=== PATIENT | female | born 1950 | race Caucasian/White ===

== ENCOUNTER 2021-02-07 08:02 | Outpatient (CLI) | payer MEDICARE | END 2021-02-07 08:03 | disposition home or self-care (01) | LOC: BICULT 08:02 | PROVIDERS: ATTEND Internal Medicine Gastroenterology | DX: R94.5 Abnormal results of liver function studies (principal); K76.6 Portal hypertension; R16.2 Hepatomegaly with splenomegaly, not elsewhere classified | CPT/HCPCS: 76705 ==

== ENCOUNTER 2021-04-08 11:03 | Outpatient (CLI) | payer MEDICARE | END 2021-04-08 11:04 | disposition home or self-care (01) | LOC: DTY/OP 11:03 | PROVIDERS: ATTEND Family Medicine | DX: E11.65 Type 2 diabetes mellitus with hyperglycemia (principal); N28.9 Disorder of kidney and ureter, unspecified | CPT/HCPCS: 97802 ==

== ENCOUNTER 2022-03-23 07:56 | Outpatient (CLI) | payer MEDICARE ==
[2022-03-23] MEDS ORDERED: Iopamidol-370 76% 500 ML 1 ML ONE (12:11)
== END 2022-03-23 07:57 | disposition home or self-care (01) ==
LOC: BICCT 07:56
PROVIDERS: ATTEND Physician Assistant Medical
DX: K74.60 Unspecified cirrhosis of liver (principal); R19.7 Diarrhea, unspecified; R18.8 Other ascites; R16.1 Splenomegaly, not elsewhere classified
CPT/HCPCS: 74177; 82565; Q9967

== ENCOUNTER 2023-02-17 08:22 | Outpatient (CLI) | payer MEDICARE | END 2023-02-17 08:23 | disposition home or self-care (01) | LOC: ULT 08:22 | PROVIDERS: ATTEND Physician Assistant Medical | DX: K74.60 Unspecified cirrhosis of liver (principal); R19.7 Diarrhea, unspecified; K76.6 Portal hypertension; R18.8 Other ascites | CPT/HCPCS: 36415; 76705; 80053; 82105; 85025; 85610 ==

== ENCOUNTER → 2023-06-28 | Day surgery (SDC) | payer MEDICARE ==
[~2023-06-28] MED LIST: Lidocaine 1% PF 5 ML VIAL ONE
[2023-06-28 12:12] LABS: #Eosinphils 0.1 thou/uL (0.0-0.7); #Monocytes 0.3 thou/uL (0.11-0.59); #Neutrophils 3.2 thou/uL (1.40-6.50); %Basophils 0.7 % (0.0-1.0); %Eosinophils 1.2 % (0.0-10.0); %Lymphocytes 15.4 % (21.0-51.0); %Monocytes 7.7 % (0.0-10.0); %Neutrophils 74.8 % (42.0-75.0); Hematocrit 34.6 % (36.0-47.0); Hemoglobin 10.8 g/dL (12.0-16.0); Mean Corpuscular HGB CONC 31.2 g/dL (32.0-36.0); Mean Corpuscular Hemoglobin 25.9 pg (27.0-31.0); Mean Platelet Volume 10.1 fL (7.4-10.4); Platelet Count 143 10x3/uL (130-400); RBC Distribution Width 17.2 % (11.5-14.5); Red Blood Cell (RBC) Count 4.17 mill/uL (4.20-5.40); White Blood Cell (WBC) Count 4.3 10x3/uL (4.8-10.8)
[2023-06-28 12:34] LABS: INR-International Normal Ratio 1.2; PTT 38.2 sec (22.9-36.1); Prothrombin Time 15.2 sec (12.0-14.7)
[2023-06-28 16:57] LABS: RBC Count-Automated (BF) 272 /cu.mm; WBC/Nucleated-Auto (BF) 161 /cu.mm
[2023-06-28 17:12] LABS: BF Color Yellow; Body Fluid Source Ascites Body Fluid; Clarity Clear (Clear); Tube # EDTA
[2023-06-28 17:14] LABS: BF Segmented Neutrophils 8 %; Cell Count Non Hematic 27 %; Lymphocytes 65 %
== END ==
LOC: ULT 12:09
PROVIDERS: ATTEND Physician Assistant Medical
PROC: 0W9G3ZZ Drainage of Peritoneal Cavity, Percutaneous Approach (ICD-10-PCS; principal; 2023-06-28)
DX: K74.60 Unspecified cirrhosis of liver (principal); R18.8 Other ascites; I10 Essential (primary) hypertension; E78.5 Hyperlipidemia, unspecified; E03.9 Hypothyroidism, unspecified; E11.9 Type 2 diabetes mellitus without complications; F41.9 Anxiety disorder, unspecified; F32.A Depression, unspecified; K52.9 Noninfective gastroenteritis and colitis, unspecified; Z88.2 Allergy status to sulfonamides; Z90.710 Acquired absence of both cervix and uterus; Z90.49 Acquired absence of other specified parts of digestive tract; Z79.890 Hormone replacement therapy; Z79.899 Other long term (current) drug therapy
CPT/HCPCS: 49083; 82042; 83880; 84157; 85025; 85060; 85610; 85730; 87070; 87205; 88112; 88305; 89051

== ENCOUNTER 2023-07-28 08:08 | Outpatient (CLI) | payer MEDICARE | END 2023-07-28 08:09 | disposition home or self-care (01) | LOC: CT 08:08 | PROVIDERS: ATTEND Physician Assistant Medical | DX: E03.9 Hypothyroidism, unspecified (principal); I85.00 Esophageal varices without bleeding; D64.9 Anemia, unspecified; R63.4 Abnormal weight loss; D73.2 Chronic congestive splenomegaly; R18.8 Other ascites | CPT/HCPCS: 74177; 82565 ==

== ENCOUNTER 2023-08-04 12:22 | Day surgery (SDC) | payer MEDICARE ==
[2023-08-04 13:20] LABS: #Basophils 0.1 thou/uL (0.0-0.2); #Eosinphils 0.1 thou/uL (0.0-0.7); #Monocytes 0.4 thou/uL (0.11-0.59); #Neutrophils 4.6 thou/uL (1.40-6.50); %Eosinophils 1.5 % (0.0-10.0); %Lymphocytes 15.4 % (21.0-51.0); %Monocytes 6.7 % (0.0-10.0); %Neutrophils 75.1 % (42.0-75.0); Hematocrit 35.9 % (36.0-47.0); Hemoglobin 10.9 g/dL (12.0-16.0); Mean Corpuscular HGB CONC 30.4 g/dL (32.0-36.0); Mean Corpuscular Hemoglobin 25.7 pg (27.0-31.0); Mean Corpuscular Volume 84.7 fl (78.0-98.0); Mean Platelet Volume 10.2 fL (7.4-10.4); Platelet Count 176 10x3/uL (130-400); RBC Distribution Width 17.3 % (11.5-14.5); Red Blood Cell (RBC) Count 4.24 mill/uL (4.20-5.40); White Blood Cell (WBC) Count 6.1 10x3/uL (4.8-10.8)
[2023-08-04 13:40] LABS: INR-International Normal Ratio 1.2; Prothrombin Time 14.7 sec (12.0-14.7)
== END 2023-08-04 14:00 | disposition home or self-care (01) ==
LOC: ULT 12:22
PROVIDERS: ATTEND Physician Assistant Medical
DX: K74.60 Unspecified cirrhosis of liver (principal); R18.8 Other ascites; K52.9 Noninfective gastroenteritis and colitis, unspecified; R09.89 Other specified symptoms and signs involving the circulatory and respiratory systems; Z88.2 Allergy status to sulfonamides; Z53.9 Procedure and treatment not carried out, unspecified reason
CPT/HCPCS: 36415; 76705; 85025; 85610; 85730

== ENCOUNTER 2025-05-08 07:35 | Outpatient (CLI) | payer MEDICARE | END 2025-05-08 07:36 | disposition home or self-care (01) | LOC: ULT 07:35 | PROVIDERS: ATTEND Physician Assistant Medical | DX: I85.00 Esophageal varices without bleeding (principal); K74.60 Unspecified cirrhosis of liver; R18.8 Other ascites; R16.1 Splenomegaly, not elsewhere classified | CPT/HCPCS: 76705 ==